=== PATIENT | male | born 1980 | race Caucasian/White ===

== ENCOUNTER 2020-01-23 09:32 | Emergency (ER) | payer OTHER ==
[~2020-01-23] VITALS: Ht 165.1 cm; Wt 84.8 kg
[2020-01-23 09:41] VITALS: Ht 165.1 cm; Wt 84.8 kg
[2020-01-23 11:00] LABS: BASOPHIL % 0.4 % (0-2); PLATELET COUNT 130 x10^3mcL (130-400); RED CELL DISTRIBUTION WIDTH 12.3 % (11.5-14.5)
[2020-01-23 11:08] LABS: CALCIUM 9.3 mg/dL (8.5-10.1); CARBON DIOXIDE 22.1 mmol/L (21-32); CHLORIDE SERUM 94 mmol/L (98-107); GFR1 > 60 mL/min; POTASSIUM SERUM 4.3 mmol/L (3.5-5.1); SODIUM SERUM 127 mmol/L (136-145)
[2020-01-23 11:16] LABS: GLUCOSE SERUM 642 mg/dL (74-106)
[2020-01-23 11:56] VITALS: BP 133/72
== END 2020-01-23 11:56 | disposition home or self-care (01) ==
LOC: ED 09:32
PROVIDERS: Emergency Medicine
DX: E11.65 Type 2 diabetes mellitus with hyperglycemia (principal); H53.8 Other visual disturbances
CPT/HCPCS: 82962; J1815; J7030

== ENCOUNTER 2020-04-19 06:01 | Emergency (ER) | payer OTHER ==
[~2020-04-19] VITALS: Ht 165.1 cm; Wt 84.8 kg
[2020-04-19 06:19] VITALS: BP 151/92; Ht 165.1 cm; Wt 84.8 kg
== END 2020-04-19 08:45 | disposition home or self-care (01) ==
LOC: ED 06:01
DX: L03.011 Cellulitis of right finger (principal); E11.9 Type 2 diabetes mellitus without complications